=== PATIENT | female | born 1970 | race Caucasian/White ===

== ENCOUNTER 2017-12-26 07:55 | Emergency (ER) | payer MEDICAID ==
[~2017-12-26] VITALS: Ht 160 cm; Wt 93.0 kg
[2017-12-26 07:58] VITALS: BP 140/87
[2017-12-26 08:45] VITALS: BP 140/87
== END 2017-12-26 08:45 | disposition home or self-care (01) ==
LOC: MED 07:55
DX: J20.9 Acute bronchitis, unspecified (principal); E11.9 Type 2 diabetes mellitus without complications
CPT/HCPCS: 99283